=== PATIENT | male | born 1950 | race Caucasian/White ===

== ENCOUNTER 2017-12-22 06:25 | Day surgery (SDC) | payer MEDICARE, OTHER ==
[2017-12-22] MEDS ORDERED: Lactated Ringers 1,000 ML IV SCH (07:00)
[2017-12-22] MEDS ORDERED: Midazolam 1 MG/ML 2 ML SDV ONE (08:03)
[2017-12-22] MEDS ORDERED: fentaNYL 100 MCG/2 ML SDV ONE (08:03)
[2017-12-22] MEDS ORDERED: Propofol 200 MG/20 ML SDV ONE (08:03)
--- NOTE | 2017-12-22 11:56 | OR ---
DATE OF SURGERY: 12/22/2017 REFERRING PROVIDER: David Dunn MD PRE-OPERATIVE DIAGNOSES: Screening colonoscopy. This is the patient's first colonoscopy. He states there is a family history of polyps in a sibling and a parent, although nothing significant. POST-OPERATIVE DIAGNOSES: 1. A 2-mm polyp at 90 cm, removed with cold forceps. 2. Moderate left-sided diverticulosis. 3. Mild internal hemorrhoids. PROCEDURE: Colonoscopy with polypectomy x1 using cold forceps. SURGEON: Tj Nieves M.D. ANESTHESIA: Monitored anesthesia care. BOWEL PREP: Good. DESCRIPTION OF PROCEDURE: Mr. Garcia is a 67-year-old male, who was brought to the endoscopy suite after discussing risks and benefits of the procedure. Informed consent was obtained for conscious sedation and colonoscopy with or without biopsy and/or polypectomy. We also discussed possibility of missed lesions. Pre-procedure exam was unremarkable. IV, oxygen, and monitors were placed. The patient was placed in the left lateral decubitus position. Sedation was administered and a digital rectal exam was performed and unremarkable. Colonoscope was passed into the rectum and slowly advanced all the way to the cecum. Cecum was viewed and photographed. The colonoscope was slowly withdrawn and the mucosa was closed observed in a direct circumferential manner. The ascending colon was unremarkable. The transverse colon revealed 2 mm polyp at 90 cm, removed with cold forceps. This was likely near hepatic flexure. The descending colon and sigmoid colon were remarkable for some moderate diverticulosis. Retroflexion was performed. Rectal mucosa revealed some mild internal hemorrhoids, not acutely inflamed. Scope was removed. The patient tolerated the procedure well. The patient was monitored until that baseline status. Discharge instructions were reviewed and the patient was discharged in good condition. COMPLICATIONS: None. TOTAL TIME: 14 minutes. ESTIMATED BLOOD LOSS: Less than 1 mL. RECOMMENDATIONS/FOLLOW-UP: Removed normal colon and replaced with. We will await results of pathology report to determine ideal followup interval. I would like to kindly thank Dr. David Dunn for this referral. DMB: 12/22/2017 08:55:25 MODL: 12/22/2017 11:49:47 /[id number]
== END 2017-12-22 09:40 | disposition home or self-care (01) ==
LOC: VM.SDS 06:25
PROVIDERS: ATTEND Family Medicine
DX: Z12.11 Encounter for screening for malignant neoplasm of colon (principal); D12.3 Benign neoplasm of transverse colon; K57.30 Diverticulosis of large intestine without perforation or abscess without bleeding; K64.8 Other hemorrhoids; I10 Essential (primary) hypertension; J45.40 Moderate persistent asthma, uncomplicated; E03.9 Hypothyroidism, unspecified; E78.5 Hyperlipidemia, unspecified; E06.3 Autoimmune thyroiditis; M10.9 Gout, unspecified; M79.1 Myalgia; Z79.899 Other long term (current) drug therapy; Z88.1 Allergy status to other antibiotic agents; Z88.8 Allergy status to other drugs, medicaments and biological substances; Z91.048 Other nonmedicinal substance allergy status; Z80.0 Family history of malignant neoplasm of digestive organs
CPT/HCPCS: 00812; 45380; 88305; J2250; J2704; J3010; J7120

== ENCOUNTER 2024-03-09 06:49 | Day surgery (SDC) | payer MEDICARE, OTHER ==
[2024-03-09] MEDS ORDERED: Lactated Ringers 1,000 ML IV SCH ×2 (07:00)
[2024-03-09] MEDS ORDERED: Propofol 200 MG/20 ML SDV ONE ×2 (07:44→08:56)
[2024-03-09] MEDS ORDERED: fentaNYL 100 MCG/2 ML SDV ONE (07:44)
[2024-03-22] MEDS ORDERED: Lactated Ringers 1,000 ML IV SCH (07:00)
== END 2024-03-09 10:56 | disposition home or self-care (01) ==
LOC: VM.SDS 06:49
PROVIDERS: ATTEND Student in an Organized Health Care Education/Training Program
DX: Z12.11 Encounter for screening for malignant neoplasm of colon (principal); D12.2 Benign neoplasm of ascending colon; D12.3 Benign neoplasm of transverse colon; K63.5 Polyp of colon; J45.40 Moderate persistent asthma, uncomplicated; I10 Essential (primary) hypertension; E03.9 Hypothyroidism, unspecified; E78.00 Pure hypercholesterolemia, unspecified; Z79.899 Other long term (current) drug therapy; Z88.1 Allergy status to other antibiotic agents; Z86.0100 Personal history of colon polyps, unspecified
CPT/HCPCS: 00811; 88305; 99100; J2704; J3010